=== PATIENT | female | born 1950 | race Caucasian/White ===

== ENCOUNTER 2020-04-09 15:05 | Emergency (ER) | payer MEDICARE, SELFPAY ==
[2020-04-09 15:16] VITALS: BP 182/101; PULSE 72; RESP 16; TEMP 37.3; O2SAT 100
--- NOTE | 2020-04-09 15:19 | ED.EAR ---
HPI - Ear Problem General Chief complaint: Ear Stated complaint: left ear problems Time Seen by Provider: 04/09/20 15:27 Source: patient History of Present Illness HPI Narrative: Patient presents and states that she had ringing in her left ear earlier today. Patient states no ringing at present no dizziness no nausea no ear pain. Patient denies any recent URI. No fever no cough no runny nose. Patient states she was sitting at home earlier today and all of a sudden she felt a ringing in her left ear. Patient states she has never had this before. Patient denies any history of tinnitus. Location: left ear Related Data Allergies Allergy/AdvReac Type Severity Reaction Status Date / Time ibuprofen [From Motrin] AdvReac Ulcers Verified 04/09/20 15:14 Review of Systems Review of Systems: Narrative: CONSTITUTIONAL: Denies fever, chills, or sweats. EYES: Denies visual changes, redness, or discharge. ENT: Denies rhinorrhea, congestion, sore throat, or otalgia. CARDIOVASCULAR: Denies chest pain, palpitations, or edema. RESPIRATORY: Denies cough or dyspnea. GASTROINTESTINAL: Denies abdominal pain, nausea, vomiting, or diarrhea. GENITOURINARY: Denies dysuria or hematuria. SKIN: Denies rash or itching. MUSCULOSKELETAL: Denies back pain, joint pain, or myalgia. NEUROLOGIC: Denies headache, numbness, or weakness. PSYCHIATRIC: Denies anxiety or depression. [facility] Past Medical History Medical History (Updated 04/09/20 @ 15:27 by KOBY Welsh) HTN (hypertension) Family History Family History Father Family history of primary malignant neoplasm of liver Other Diabetes mellitus Social History Social History Smoking status: Never smoker Alcohol intake: never Comments At time of signature, agree with nursing past medical, surgical, social and family history. There is no relevant family history pertinent to the presenting complaint Exam Narrative: Exam Narrative: GENERAL: Well-appearing, well-nourished, and in no acute distress. HEAD: Normocephalic, atraumatic. EYES: PERRLA and EOMI. ENT: Nares clear, no rhinorrhea or epistaxis. Mucous membranes moist. NECK: Supple. CHEST: Clear to auscultation. No respiratory distress. HEART: Regular rate and rhythm. No murmur heard. Normal peripheral pulses. ABDOMEN: Soft, nontender, nondistended, normal active bowel sounds. EXTREMITIES: Normal range of motion. No edema. SKIN: Warm, dry, no rash. NEURO: No focal deficits. Alert and oriented x3. [place] Coma Scale Eye Opening: Spontaneous 4 [place] Coma Scale Motor: Obeys Commands 6 Kenneth Coma Scale Verbal: Oriented 5 Kenneth Coma Scale Total 15 Course Vital Signs Vital signs: Vital Signs Temperature 37.3 C 04/09/20 15:16 Pulse Rate 72 04/09/20 15:16 Respiratory Rate 16 04/09/20 15:16 Blood Pressure 182/101 H 04/09/20 15:16 Pulse Oximetry 100 04/09/20 15:16 Temperature 37.3 C 04/09/20 15:26 Pulse Rate 72 04/09/20 15:26 Respiratory Rate 16 04/09/20 15:26 Blood Pressure 182/101 H 04/09/20 15:26 Pulse Oximetry 100 04/09/20 15:26 Please RAYMUNDO schedule a followup visit with your personal physician for further evaluation and treatment. Including recheck and discussion of your blood pressure. If your symptoms persist, change or worsen significantly before you can contact your personal physician then please, without delay, go to the emergency department for further evaluation recheck of BP PRIOR TO DISCHARGE 160/80 Medical Decision Making Differential Diagnosis Differential Diagnosis: Otitis media, otitis externa, sinusitis, eustachian tube dysfunction, tinnitus, vertigo Vital Signs Vital Signs: Vital Signs Temperature 37.3 C 04/09/20 15:16 Pulse Rate 72 04/09/20 15:16 Respiratory Rate 16 04/09/20 15:16 Blood Pressure 182/101 H 04/09/20 15:16 Pulse Oximetry 100
[2020-04-09 15:26] VITALS: BP 182/101; PULSE 72; RESP 16; TEMP 37.3; O2SAT 100
== END 2020-04-09 15:30 | disposition home or self-care (01) ==
PROVIDERS: Emergency Provider Nurse Practitioner Family
DX: H93.12 Tinnitus, left ear (principal); I10 Essential (primary) hypertension
CPT/HCPCS: 99213; G0463

== ENCOUNTER 2020-05-05 09:28 | Outpatient (CLI) | payer MEDICARE, SELFPAY ==
--- NOTE | ~2020-05-05 | XR_ITS ---
EXAMINATION: XR knee LT 2V EXAM DATE: 05/05/2020 10:00 INDICATION: No known recent injury provided at this time. Pain of the left knee for 6 days. TECHNIQUE: Frontal and lateral projections of the left knee. There is no prior study for comparison . FINDINGS: Small suprapatellar enthesopathy. No joint effusion. There are no acute left knee fracture s or dislocations identified. There is no subcutaneous gas. The soft tissue is unremarkable. Ther e are no radiopaque foreign bodies. IMPRESSION: 1. Unremarkable XR knee LT 2V exam. Reviewed, dictated and finalized at location A. R SCHOOL COUNSELOR
== END 2020-05-05 09:29 | disposition home or self-care (01) ==
LOC: ANHIMG 09:35
PROVIDERS: PCP Family Medicine; Visit Provider Nurse Practitioner Family
DX: M25.562 Pain in left knee (principal)
CPT/HCPCS: 73560

== ENCOUNTER 2020-06-15 11:00 | Outpatient (CLI) | payer MEDICARE, SELFPAY ==
--- NOTE | ~2020-06-15 | XR_ITS ---
EXAMINATION: XR abdomen/kub 1V INDICATION: Left flank pain TECHNIQUE: Supine views of the abdomen were obtained on 2 radiographs. COMPARISON: None FINDINGS: No definite urolithiasis is identified. A phlebolith is noted in the left pelvis. The bowel gas pattern is normal. Surgical clips in the right upper quadrant are likely from prior cholecystect [place]. There are no dilated loops of bowel. There is moderate lumbar spondylosis and moderate bilateral hip osteoarthritis. IMPRESSION: 1. No definite urolithiasis identified. Reviewed, dictated and finalized at location A. [employer]
== END 2020-06-15 11:01 | disposition home or self-care (01) ==
LOC: ANHIMG 11:03
PROVIDERS: PCP Family Medicine; Visit Provider Nurse Practitioner Family
DX: R10.9 Unspecified abdominal pain (principal)
CPT/HCPCS: 74018

== ENCOUNTER 2020-08-23 09:31 | Outpatient (CLI) | payer MEDICARE, SELFPAY ==
--- NOTE | 2020-08-23 09:36 | EST_ITS ---
Patient Info Name: Gemini Muñoz Age: 69 years : 1950 Gender: Female Ht: 66 in Wt: 189 lbs BSA: 2.02 m2 Exam Date: 08/23/2020 10:32 AM Exam Location: [facility] Stress Patient Status: Outpatient Admit Date: 08/23/2020 Staff Ordering Physician: Dina Gramajo NP Attending Provider: Meche Rowland MD Exercise Technologist: Leoncio Moreno RDCS, RT Exercise Physician: Lei Tejada DO Exam Type: CA stress test treadmill Study Info An exercise stress test was performed. Summary 1. 1. Abnormal Dylan exercise stress test for ischemic ST changes by ECG criteria. 2. 2. Poor functional capacity, achieving 4 METs of workload. 3. 3. Rapid HR response to exercise. 4. 4. Appropriate HR recovery at 1 minute post exercise. 5. 5. Baseline hypertension. 6. 6. No imaging with stress testing. 7. 7. Patient informed of the above results. 8. 8. Dr. Rowland's office is notified as he is on vacation. Protocol: Dylan Stress ECG Details Stage: REST Duration (min): 1 min : 52 sec Speed (mph): 0.0 Grade (%): 0 HR (bpm): 80 SBP (mmHg): --- DBP (mmHg): --- METS: --- Stage: REST Duration (min): 9 min : 34 sec Speed (mph): 0.0 Grade (%): 0 HR (bpm): 81 SBP (mmHg): 153 DBP (mmHg): 90 METS: --- Stage: STAGE 1 Duration (min): 1 min : 0 sec Speed (mph): 1.7 Grade (%): 10 HR (bpm): 118 SBP (mmHg): 153 DBP (mmHg): 90 METS: --- Stage: STAGE 1 Duration (min): 2 min : 0 sec Speed (mph): 1.7 Grade (%): 10 HR (bpm): 142 SBP (mmHg): 153 DBP (mmHg): 90 METS: --- Stage: STAGE 1 Duration (min): 2 min : 36 sec Speed (mph): 1.7 Grade (%): 10 HR (bpm): 150 SBP (mmHg): 153 DBP (mmHg): 90 METS: --- Stage: RECOVERY Duration (min): 0 min : 23 sec Speed (mph): 0.0 Grade (%): 0 HR (bpm): 152 SBP (mmHg): 155 DBP (mmHg): 81 METS: --- Stage: RECOVERY Duration (min): 1 min : 23 sec Speed (mph): 0.0 Grade (%): 0 HR (bpm): 132 SBP (mmHg): 155 DBP (mmHg): 81 METS: --- Stage: RECOVERY Duration (min): 2 min : 23 sec Speed (mph): 0.0 Grade (%): 0 HR (bpm): 113 SBP (mmHg): 155 DBP (mmHg): 81 METS: --- Stage: RECOVERY Duration (min): 3 min : 23 sec Speed (mph): 0.0 Grade (%): 0 HR (bpm): 104 SBP (mmHg): 186 DBP (mmHg): 82 METS: --- Stage: RECOVERY Duration (min): 4 min : 23 sec Speed (mph): 0.0 Grade (%): 0 HR (bpm): 96 SBP (mmHg): 186 DBP (mmHg): 82 METS: --- Stage: RECOVERY Duration (min): 5 min : 23 sec Speed (mph): 0.0 Grade (%): 0 HR (bpm): 96 SBP (mmHg): 172 DBP (mmHg): 80 METS: --- Stage: RECOVERY Duration (min): 5 min : 30 sec Speed (mph): 0.0 Grade (%): 0 HR (bpm): 94 SBP (mmHg): 172 DBP (mmHg): 80 METS: --- Rest HR: 81 bpm Peak HR: 152 bpm Rest Sys BP: 15
== END 2020-08-23 09:32 | disposition home or self-care (01) ==
PROVIDERS: PCP Family Medicine; Visit Provider Family Medicine
DX: R06.00 Dyspnea, unspecified (principal)
CPT/HCPCS: 93017

== ENCOUNTER → 2020-09-28 00:53 | Outpatient (CLI) | payer MEDICARE, SELFPAY ==
[2020-09-28 20:46] LABS: SARS-CoV-2 RNA PCR Negative
== END ==
PROVIDERS: PCP Family Medicine; Visit Provider Specialist
DX: Z01.812 Encounter for preprocedural laboratory examination (principal); Z20.822 Contact with and (suspected) exposure to COVID-19
CPT/HCPCS: C9803; U0003; U0005

== ENCOUNTER 2020-10-01 01:47 | Day surgery (SDC) | payer MEDICARE, SELFPAY ==
[2020-09-30 12:52] VITALS: BMI 30.8
[2020-10-01] VITALS (22 sets, daily range): BP systolic 127–155; BP diastolic 70–97; PULSE 67–85; RESP 12–16; TEMP 35.7–35.9; O2SAT 100; BMI 31.0
[2020-10-01] MEDS: SODIUM CHLORIDE 0.9% IV 500 ML 100 ML IV CONT (07:33)
[2020-10-01 07:34] LABS: Basophils Absolute Auto 0.1 K/mm3 (0.0-0.1); Basophils Percent Auto 0.9 % (0.2-1.2); Eosinophils Absolute Auto 0.4 K/mm3 (0-0.3); Eosinophils Percent Auto 4.8 % (0-4.4); Hematocrit 41.5 % (37.0-47.0); Immature Granulocyte Absolute 0.02 K/mm3 (0.00-0.031); Immature Granulocyte Percent A 0.3 % (0-0.5); Lymphocytes Absolute Auto 2.33 K/mm3 (0.9-3.2); Lymphocytes Percent Auto 30.9 % (18.3-44.2); Mean Corpuscular HGB Conc 33.7 g/dl (32-36); Mean Corpuscular Hemoglobin 31.7 pg (26-34); Mean Corpuscular Volume 93.9 fl (80-100); Mean Platelet Volume 9.6 fl (7.4-10.4); Monocytes Absolute Auto 0.6 K/mm3 (0.1-0.6); Monocytes Percent Auto 8.1 % (2.6-8.5); Neutrophils Absolute Auto 4.2 K/mm3 (1.3-6.7); Platelet Count Result 244 k/mm3 (150-375); Red Blood Count 4.42 M/mm3 (4.2-5.4); Red Cell Distribution Width 11.9 % (11.5-14.5); White Blood Count 7.5 K/mm3 (4.5-10.0)
[2020-10-01 07:44] LABS: Anion Gap 9 mmol/L (8-16); Blood Urea Nitrogen 16 mg/dL (7-17); Calcium 9.3 mg/dL (8.4-10.2); Carbon Dioxide 30 mmol/L (22-30); Chloride 102 mmol/L (98-107); Estimated CRCL calculation 56 ml/min; Estimated Glomerular Filt Rate > 60; Glucose 101 mg/dL (65-105); Sodium 141 mmol/L (137-145)
[2020-10-01 07:45] LABS: INR 0.9; Prothrombin Time 12.8 Seconds (11.1-14.7)
[2020-10-01 08:00] LABS: Potassium 3.8 mmol/L (3.4-5.0)
--- NOTE | 2020-10-01 09:27 | WPDMODSED ---
Moderate Sedation Note-Pt Data Patient Data Diagnosis: Exertional dyspnea hypertension abnormal stress test Present Complaint: this is a 69-year-old woman who has been reporting symptoms of exertional dyspnea for several months. A exercise stress test done as an outpatient was abnormal prompting the recommendation for an angiogram. Procedure to be performed/Plan: Left heart catheterization Allergies Allergy/AdvReac Type Severity Reaction Status Date / Time No Known Allergies Allergy Verified 09/07/20 08:30 Home Medications Medication Instructions Recorded Confirmed Type lisinopril 20 mg tablet 20 mg PO DAILY #90 tablet 07/13/20 10/01/20 Rx pravastatin 10 mg tablet 10 mg PO DAILY #30 tablet 09/07/20 09/30/20 Rx aspirin 81 mg PO DAILY 09/30/20 09/30/20 History Current Medications: Active Medications Sodium Chloride (Normal Saline Iv) 500 mls @ 100 mls/hr IV CONT .Q5H GARY Last Admin: 10/01/20 07:33 Dose: 100 mls/hr Documented by: Sedation/Anesthesia: No previous sedation/anesthesia problems (including family history). [facility] Past Medical History Medical History Essential (primary) hypertension HTN (hypertension) Pyelonephritis (~04/2012) Surgical History Surgical History Hx of cholecystectomy (~06/08/10) Family History Family History Father Family history of primary malignant neoplasm of liver Other Diabetes mellitus Social History Social History Smoking status: Never smoker Second hand tobacco smoke exposure: No Alcohol intake: never Substance use: never Living arrangements: alone Additional living arrangements comments: Sister will be staying with patient for few days Gender identity (if verbalized by the patient): Female Sexual Orientation (if Verbalized by the Patient): Straight or Heterosexual Spiritual care concerns: No Mod Sed Physical Exam Physical Exam Pre Procedural Exam: Normal: Appearance, Neck, Throat, Airway, Lungs, Heart Size, Heart Rate, Heart Rhythm, Neuro Exam and Extremities Hours since solid foods: 12 Hours since liquid intake: 12 Internal Medicine - PN: Obj Da Vital Signs Vital Signs: Vital Signs - 24 hr 10/01/20 07:34 Temperature 35.9 C L Pulse Rate 81 Respiratory Rate 12 Blood Pressure 140/93 H Pulse Oximetry 100 Meds/Results Medications: Active Medications Generic Name Dose Route Start Last Admin Trade Name Masterq PRN Reason Stop Dose Admin Sodium Chloride 500 mls @ 100 mls/hr 10/01/20 07:30 10/01/20 07:33 Normal Saline Iv IV CONT 100 mls/hr .Q5H GARY Administration Labs CBC & Chem 7: 10/01/20 07:29 10/01/20 07:29 Labs: Laboratory Results - last 24 hr 10/01/20 10/01/20 10/01/20 07:29 07:29 07:29 WBC 7.5 RBC 4.42 Hgb 14.0 Hct 41.5 MCV 93.9 MCH 31.7 MCHC 33.7 RDW 11.9 Plt Count 244 MPV 9.6 Immature Gran % (Auto) 0.3 Neut % (Auto) 55.0 Lymph % (Auto) 30.9 Stanton % (Auto) 8.1 Eos % (Auto) 4.8 H Baso % (Auto) 0.9 Lymph # (Auto) 2.33 Stanton # (Auto) 0.6 Eos # (Auto) 0.4 H Baso # (Auto) 0.1 Abs Immat Gran (auto) 0.02 Absolute Neuts (auto) 4.2 Absolute Nucleated RBC 0.0 Nucleated RBC % 0.0 PT 12.8 INR 0.9 Sodium 141 Potassium 3.8 Chloride 102 Carbon Dioxide 30 Anion Gap 9 BUN 16 Creatinine 0.90 Estim Creat Clear Calc 56 Estimated GFR > 60 Glucose 101 Calcium 9.3 ASA Classification/Sedation ASA Classification/Sedation ASA Class: II Emergent: No Risks: Risks, benefits and alternatives explained and patient/family accepted plan for sedation. Patient re-evaluated immediately prior to sedation.
--- NOTE | 2020-10-01 10:29 | WPDCARDPROC ---
Cardiac Cath Procedure Note Date of procedure:: 10/01/20 Performing physician:: Duke Mabry MD Indication:: exertional shortness of breath abnormal stress test Brief clinical history:: this is a 69-year-old lady with longstanding hypertension and dyslipidemia presenting with several months of exertional dyspnea. An exercise stress test as an outpatient was strongly abnormal at a low workload. Procedure Procedure performed:: Left ventriculography coronary angiography coronary IFR determination in the LAD Sedation/Medication given:: fentanyl 50 mg Versed 2 mg case start time 9:41 a.m. case end time 10:23 a.m. sedation provided by Jinny Lucio RN, trained observer Access site:: right femoral artery Estimated blood loss:: 20-30 cc Procedure note:: patient was brought to the cardiac catheterization lab in the postabsorptive state where the right femoral triangle was prepared and draped in the usual fashion. Anesthesia was provided 1% lidocaine infiltrated locally. Using the modified Seldinger technique the right femoral artery was punctured and a 5 Mauritanian vascular sheath was placed. Left heart catheterization was then carried out. First use a 5 [place]ian angled pigtail catheter to measure left-sided hemodynamics and to injected LV g in the LANIER projection. Following this a standard 5 [place] FL4 catheter was used to engage left coronary and inject the left coronary in multiple projections. Five [place]ian JR4 catheter was used to engage and inject the right coronary artery. The cine angiograms were then reviewed. I recommended IFR determination in the LAD which was then performed. The for this the patient was anticoagulated with bolus and infusion of Angiomax. A 5 [place]ian CLS 3.5 guiding catheter was used for the IFR. Following this an angiogram was done of the left coronary artery and the case was terminated. The patient was taken to the holding area for manual sheath removal. 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 Findings:: Hemodynamics: Central aortic pressure is 160 over 68 left ventricle 158/0 end-diastolic 12 there is no significant gradient on pullback across the aortic valve. Left ventricle: The LV appears to be normal in size the inferior basal segment is moderately hypodynamic the remainder of the LV contracts well the global ejection fraction is 55% by visual estimation. The left main coronary artery is large in caliber and widely patent the LAD is a large caliber vessel extending down to and just around the apex. There is a area of atherosclerotic stenosis just prior to a major diagonal branch which is eccentric in some views appears to be is much is 60-70% in other views appears to be trivial. The distal to this the LAD is free of significant lesions. The major diagonal branch is a very long vessel that is subtotally 99% occluded. Circumflex is a moderate caliber artery giving rise to 2 marginal branches and a posterior branch. Both of the marginal branches are moderate-sized vessels with 90-95% stenoses. The right coronary artery is moderate caliber and dominant to the posterior circulation the right coronary artery is 100% occluded in the 2nd portion. There is collateral filling seen to the RPDA from the left coronary artery coronary IFR determination the LAD yielded a result of 0.72. Conclusion:: 1. Severe three-vessel coronary artery disease as discussed above with angiographically moderate LAD disease but which is clearly flow limiting by IFR determination. There was also subtotal occlusion of a very long diagonal branch. 2. High-grade 90-95% lesions in both OM branches of the circumflex. 3. 100% occlusion of the 2nd portion of the RCA with collateral filling to the RPDA 4. mild LV systolic dysfunction with posterior basal hypokinesia overall normal ejection fraction Duke Mabry MD [facility]
--- NOTE | 2020-10-01 14:51 | SUR.PHASEII ---
OPAL Nguyen spoke with Dr. Mabry in person and asked if patient's site continues to remain soft, non tender, with no bleeding or hematoma, if the patient's bedrest can be 5 hours instead of 6, and Dr. Mabry verbalized that this would be fine.
--- NOTE | 2020-10-01 18:23 | SUR.PHASEII ---
OPAL Nguyen placed a boo at 1200 before sheath pull to allow patient to empty her bladder. 1000cc total came out of boo. RN removed boo at 1800 and patient voided at 1815. Patient tolerated procedure well.
--- NOTE | 2020-10-01 19:14 | SUR.PHASEII ---
RN went through discharge instructions with patient and patient's sister. Patient verbalized understanding. All questions were answered. Patient escorted off the unit by wheelchair.
== END 2020-10-01 19:15 | disposition home or self-care (01) ==
PROVIDERS: PCP Family Medicine; Visit Provider Specialist
PROC: 4A023N7 Measurement of Cardiac Sampling and Pressure, Left Heart, Percutaneous Approach (ICD-10-PCS; CPT 93452; principal; 2020-10-01 08:30)
PROC: 4A033BC Measurement of Arterial Pressure, Coronary, Percutaneous Approach (ICD-10-PCS; CPT 93571; 2020-10-01 08:30)
DX: I25.10 Atherosclerotic heart disease of native coronary artery without angina pectoris (principal); I25.82 Chronic total occlusion of coronary artery; I11.9 Hypertensive heart disease without heart failure; E78.5 Hyperlipidemia, unspecified; R06.00 Dyspnea, unspecified; Z79.82 Long term (current) use of aspirin
CPT/HCPCS: 36415; 80048; 85025; 85610; 93458; 93571; C1769; C1887; C1894; J0461; J0583; J1644; J2250; J3010; J7030; J7040

== ENCOUNTER 2020-10-14 07:16 | Outpatient (CLI) | payer MEDICARE, SELFPAY ==
--- NOTE | 2020-10-14 07:34 | ECHO_ITS ---
Patient Info Name: Gemini Muñoz Age: 70 years : 1950 Gender: Female Ht: 65 in Wt: 186 lbs BSA: 2.00 m2 HR: 65 bpm BP: 136 / 90 mmHg Technical Quality: Fair Exam Date: 10/14/2020 8:06 AM Exam Location: [facility] Patient Status: Outpatient Admit Date: 10/14/2020 Staff Ordering Physician: Lei Tejada DO Floor Tech: KENNY Attending Provider: Lei Tejada DO Referring Physician: Terrell GELLER; Exam Type: CA echo doppler color flow Study Info Indications - EDWARDS Complete two-dimensional, color flow and Doppler transthoracic echocardiogram is performed. Summary 1. Complete two-dimensional, color flow and Doppler transthoracic echocardiogram is performed. 2. Left ventricular chamber dimension is normal. 3. Left ventricular systolic function is normal, estimated at 55-60%. 4. The left ventricular diastolic function is grade I diastolic dysfunction. 5. E/e' 10 is mildly elevated. 6. Left atrial chamber dimension is mildly enlarged. 7. There is mild aortic valve sclerosis. 8. There is mild aortic valve regurgitation. 9. The mitral valve has mildly calcified annulus. 10. There is mild mitral valve regurgitation. 11. There is mild tricuspid valve regurgitation. 12. No pulmonary hypertension, estimated pulmonary arterial systolic pressure is 22 mmHg. 13. There is trace pulmonic regurgitation. Left Ventricle E/e' 10 is mildly elevated. Left ventricular chamber dimension is normal. Left ventricular systolic function is normal, estimated at 55-60%. The left ventricular diastolic function is grade I diastolic dysfunction. Right Ventricle Right ventricular chamber dimension is normal. Right ventricular systolic function is normal. Left Atria Left atrial chamber dimension is mildly enlarged. Right Atria Right atrial chamber dimension is normal. Aortic Valve The aortic valve is trileaflet. There is mild aortic valve sclerosis. There is no aortic valve stenosis. There is mild aortic valve regurgitation. Pulmonic Valve There is trace pulmonic regurgitation. Mitral Valve The mitral valve has mildly calcified annulus. There is no mitral valve stenosis. There is mild mitral valve regurgitation. Tricuspid Valve There is mild tricuspid valve regurgitation. No pulmonary hypertension, estimated pulmonary arterial systolic pressure is 22 mmHg. Pericardium/Pleural There is no pericardial effusion. Inferior Vena Cava Normal inferior vena cava with >50% collapse upon inspiration consistent with normal right atrial pressure, 5 mmHg. Aorta The aortic root size at the sinus of Valsalva is normal. Left Ventricular Outflow Tract Name Value Normal LVOT 2D LVOT Diameter 1.8 cm LVOT Doppler LVOT Peak Gradient 6 mmHg LVOT Mean Gradient 2 mmHg LVOT VTI 25 cm LVOT VTI/AV VTI Ratio 0.6 LVOT Stroke Volume 61 ml LVOT CO 10.7 l/min LVOT CI 5.4 l/min/m2 Pulmo
== END 2020-10-14 07:17 | disposition home or self-care (01) ==
PROVIDERS: PCP Family Medicine; Visit Provider Internal Medicine Cardiovascular Disease
DX: R06.00 Dyspnea, unspecified (principal); I08.3 Combined rheumatic disorders of mitral, aortic and tricuspid valves
CPT/HCPCS: 93306

== ENCOUNTER 2021-03-03 07:15 | Outpatient (RCR) | payer MEDICARE, SELFPAY ==
[2020-12-10 08:24] VITALS: BP 110/70; PULSE 68; RESP 16; O2SAT 100
[2020-12-10 08:43] VITALS: PULSE 68
== END 2021-03-03 14:07 | disposition home or self-care (01) ==
LOC: ANHCPREHAB 07:15
PROVIDERS: PCP Family Medicine; Visit Provider Internal Medicine Cardiovascular Disease
DX: Z95.1 Presence of aortocoronary bypass graft (principal)
CPT/HCPCS: 93798

== ENCOUNTER 2022-02-27 08:45 | Outpatient (CLI) | payer MEDICARE, SELFPAY ==
[2022-02-27 19:07] LABS: Basophils Absolute Auto 0.1 K/mm3 (0.0-0.1); Basophils Percent Auto 1.1 % (0.2-1.2); Eosinophils Absolute Auto 0.3 K/mm3 (0-0.3); Eosinophils Percent Auto 4.2 % (0-4.4); Hematocrit 39.2 % (37.0-47.0); Hemoglobin 12.8 g/dL (12.0-15.0); Immature Granulocyte Absolute 0.02 K/mm3 (0.00-0.031); Immature Granulocyte Percent A 0.3 % (0-0.5); Lymphocytes Absolute Auto 2.12 K/mm3 (0.9-3.2); Lymphocytes Percent Auto 29.7 % (18.3-44.2); Mean Corpuscular HGB Conc 32.7 g/dl (32-36); Mean Corpuscular Volume 94.9 fl (80-100); Mean Platelet Volume 10.3 fl (7.4-10.4); Monocytes Absolute Auto 0.6 K/mm3 (0.1-0.6); Monocytes Percent Auto 8.8 % (2.6-8.5); Neutrophils Percent Auto 55.9 % (45.5-73.1); Platelet Count Result 242 k/mm3 (150-375); Red Blood Count 4.13 M/mm3 (4.2-5.4); Red Cell Distribution Width 12.5 % (11.5-14.5); White Blood Count 7.1 K/mm3 (4.5-10.0)
[2022-02-27 19:23] LABS: Alanine Aminotransferase 16 U/L (6-35); Albumin Level 4.6 g/dL (3.5-5.1); Alkaline Phosphatase 79 U/L (38-126); Anion Gap 13 mmol/L (8-16); Aspartate Amino Transferase 33 U/L (14-36); Bilirubin,Total 0.4 mg/dL (0.2-1.3); Blood Urea Nitrogen 18 mg/dL (7-17); Calcium 9.4 mg/dL (8.4-10.2); Carbon Dioxide 28 mmol/L (22-30); Chloride 100 mmol/L (98-107); Cholesterol 157 mg/dL (0-200); Estimated Glomerular Filt Rate 55; Glucose 92 mg/dL (65-110); HDL Direct 32 mg/dL; Potassium 4.1 mmol/L (3.4-5.0); Sodium 141 mmol/L (137-145); Triglycerides 160 mg/dL (<150)
[2022-02-27 19:34] LABS: LDL Cholesterol Direct 79 mg/dL
[2022-02-27 22:06] LABS: Vitamin D 25 Hydroxy 49.5 ng/mL
== END 2022-02-27 08:46 | disposition home or self-care (01) ==
LOC: ANHGOSHLAB 08:49
PROVIDERS: PCP Family Medicine; Visit Provider Nurse Practitioner Family
DX: E03.9 Hypothyroidism, unspecified (principal); I10 Essential (primary) hypertension; E78.5 Hyperlipidemia, unspecified; E55.9 Vitamin D deficiency, unspecified
CPT/HCPCS: 36415; 80053; 80061; 82306; 84443; 85025

== ENCOUNTER 2022-08-21 09:12 | Outpatient (CLI) | payer MEDICARE, SELFPAY ==
[2022-08-21 11:32] LABS: Kit Draw Collected
== END 2022-08-21 09:13 | disposition home or self-care (01) ==
LOC: ANHGOSHLAB 09:13
PROVIDERS: PCP Family Medicine; Visit Provider Nurse Practitioner Family
DX: I48.0 Paroxysmal atrial fibrillation (principal); I25.810 Atherosclerosis of coronary artery bypass graft(s) without angina pectoris; E78.5 Hyperlipidemia, unspecified; I10 Essential (primary) hypertension
CPT/HCPCS: 36415

== ENCOUNTER 2023-07-12 14:04 | Emergency (ER) | payer MEDICARE, SELFPAY ==
[2023-07-12 14:05] VITALS: BP 171/75; PULSE 69
[2023-07-12 14:20] VITALS: PULSE 83; RESP 16; TEMP 36.4; O2SAT 100
[2023-07-12 14:30] VITALS: BP 166/90; PULSE 72
--- NOTE | 2023-07-12 14:53 | ECG_ITS ---
Measurements Intervals [place] Rate: 64 P: 35 MD: 177 QRS: -9 QRSD: 110 T: 63 QT: 454 QTc: 471 Interpretive Statements SINUS RHYTHM WITH OCCASIONAL ATRIAL PREMATURE COMPLEXES MINIMAL VOLTAGE CRITERIA FOR LVH, CONSIDER NORMAL VARIANT [MEETS CRITERIA IN ONE OF: R(aVL), S(V1), R(V5), R(V5/V6)+S(V1)] NONSPECIFIC T-WAVE ABNORMALITY ABNORMAL ECG NO PREVIOUS ECG AVAILABLE FOR COMPARISON Electronically Signed On 07-13-2023 7:04:43 CLOTH DESIGNER by Duke Mabry M.D.
--- NOTE | 2023-07-12 15:01 | ED.DIZZY ---
HPI - Dizziness General Chief Complaint: Dizziness Stated Complaint: Dizziness Time Seen by Provider: 07/12/23 14:53 Source: patient and RN notes reviewed Mode of arrival: ambulatory Limitations: no limitations History of Present Illness HPI Narrative: Patient presents today complaining of 2 day history of intermittent dizziness. Patient states the 1st 2 days of dizziness only lasted for approximately 20 minutes each. Today has been significantly worse. States that she feels that she is leaning to the left. She had a headache today but it has since resolved. Dizziness is not worse with head movement. Denies nausea or vomiting, chest pain or shortness of breath, numbness or tingling in the extremities. She has had no falls or syncopal episodes. Dizziness is slightly improved with sitting. Denies any history of vertigo or previous dizziness episodes. Related Data Home Medications Medication Instructions Recorded Confirmed aspirin 325 mg tablet 81 mg PO DAILY 08/22/21 03/05/23 Allergies Allergy/AdvReac Type Severity Reaction Status Date / Time No Known Allergies Allergy Verified 03/09/23 08:14 Review of Systems Review of Systems: GENERAL: Denies fever, chills, or decreased activity. EYES: Denies any eye discharge or redness. ENT: Denies sore throat, ear pain, congestion, or rhinorrhea. RESP: Denies any cough, wheezing, or difficulty breathing. CARDIOVASCULAR: Denies any rapid heart rate or cool extremities. ABDOMINAL: Denies any constipation, vomiting, diarrhea, or decreased food intake. : Denies any hematuria, foul smelling urine, or decreased urine frequency. SKIN: Denies any lesions, rashes, bruises. MUSCULOSKELETAL: Denies any pain or swelling. NEURO: Denies any lethargy, irritability, or seizures.+ dizziness PSYCH: Denies abnormal interaction with family and friends. [facility] Past Medical History Medical History Essential (primary) hypertension HTN (hypertension) Pyelonephritis (~04/2012) Surgical History Surgical History Hx of cholecystectomy (~06/08/10) S/P CABG (coronary artery bypass graft) (~11/2020) Family History Family History Father Family history of primary malignant neoplasm of liver Mother Hypertension Grandparent Diabetes mellitus Sibling Cerebrovascular accident Social History Social History Smoking status: Never smoker Second hand tobacco smoke exposure: No Alcohol intake: never Substance use: never Lack of Transportation: No Lack of Food: Never True Current Housing: I Have Housing Concerned About Future Housing: No Difficulty Paying Gas/Electric Bills: No Difficulty Paying for Meds: No Currently Unemployed: No Education: High School Diploma/GED Difficulty w/ Childcare or Family Care: No Living arrangements: alone Additional living arrangements comments: Sister will be staying with patient for few days Gender identity (if verbalized by the patient): Female Sexual Orientation (if Verbalized by the Patient): Straight or Heterosexual Spiritual care concerns: No Comments At time of signature, I have reviewed and agree with nursing past medical, surgical, social and family history unless otherwise noted. Please see nursing chart for further information. There is no relevant family history pertinent to the presenting complaint Exam Narrative: GENERAL: Well-appearing, well-nourished, and in no acute distress. HEAD: Normocephalic, atraumatic. EYES: EOMI. No redness or drainage. Conjunctivae normal. ENT: Mucous membranes pink and moist. NECK: Normal AROM. Supple. No lymphadenopathy. CHEST: No respiratory distress. Clear to auscultation. HEART: Regular rate and rhythm. No murmur appreciated.
== END 2023-07-12 15:13 | disposition short-term general hospital (02) ==
PROVIDERS: Emergency Provider Nurse Practitioner
DX: R42 Dizziness and giddiness (principal); R94.31 Abnormal electrocardiogram [ECG] [EKG]; I10 Essential (primary) hypertension; Z95.1 Presence of aortocoronary bypass graft
CPT/HCPCS: 93005; 99213; G0463

== ENCOUNTER 2023-07-12 16:15 | Emergency (ER) | payer MEDICARE, SELFPAY ==
[2023-07-12 16:25] VITALS: BP 186/88; PULSE 73; RESP 16; TEMP 36.6; O2SAT 100
--- NOTE | 2023-07-12 16:30 | ECG_ITS ---
Measurements Intervals [place] Rate: 72 P: 38 RI: 165 QRS: 2 QRSD: 96 T: 71 QT: 404 QTc: 444 Interpretive Statements SINUS RHYTHM MODERATE VOLTAGE CRITERIA FOR LVH, CONSIDER NORMAL VARIANT [MEETS CRITERIA IN ONE OF: R(aVL), S(V1), R(V5), R(V5/V6)+S(V1)] NONSPECIFIC T-WAVE ABNORMALITY ABNORMAL ECG COMPARED TO ECG 07/12/2023 14:39:20 NO SIGNIFICANT CHANGES Electronically Signed On 07-16-2023 15:00:36 TELE MARKETING EXECUTIVE by Duke Mabry M.D.
--- NOTE | 2023-07-12 20:04 | PC.NURSE ---
Pt called for two hour vitals, no response @1945.
--- NOTE | 2023-07-12 20:28 | PC.NURSE ---
No answer when called for update.
== END 2023-07-12 21:31 | disposition left against medical advice (07) ==
PROVIDERS: Emergency Provider Student in an Organized Health Care Education/Training Program
DX: R42 Dizziness and giddiness (principal)
CPT/HCPCS: 93005; 99199

== ENCOUNTER 2024-04-15 14:22 | Outpatient (CLI) | payer MEDICARE, SELFPAY ==
--- NOTE | ~2024-04-15 | XR_ITS ---
XR knee RT 3V Ordering provider: Dina Gramajo NP History: . M25.561 - Pain in right knee . Comparison: None. FINDINGS: BONES: No acute fracture or dislocation. JOINT SPACES: Normal. SOFT TISSUES: Normal. IMPRESSION: No acute osseous abnormality right knee. Reviewed, dictated and finalized at location A. ING MACHINE OPERATOR HELPER
== END 2024-04-15 14:23 | disposition home or self-care (01) ==
LOC: GOSHIMG 14:24
PROVIDERS: PCP Family Medicine; Visit Provider Nurse Practitioner Family
DX: M25.561 Pain in right knee (principal)
CPT/HCPCS: 73562